=== PATIENT | male | born 1975 | race Caucasian/White ===

== ENCOUNTER 2016-06-09 12:30 | Emergency (ER) | payer OTHER | END 2016-06-09 14:49 | disposition home or self-care (01) | DX: S92.355A Nondisplaced fracture of fifth metatarsal bone, left foot, initial encounter for closed fracture (principal); X50.1XXA Overexertion from prolonged static or awkward postures, initial encounter; Y92.009 Unspecified place in unspecified non-institutional (private) residence as the place of occurrence of the external cause ==

== ENCOUNTER 2016-06-23 10:31 | Outpatient (CLI) | payer OTHER ==
--- NOTE | 2016-06-23 14:30 | XRAY Report ---
THREE VIEW LEFT FOOT: 06/23/2016 CLINICAL INDICATION: Fracture followup. COMPARISON: 06/09/2016. FINDINGS: AP, lateral, and oblique views of the left foot demonstrate minimal increase in displaceme nt of the fracture of the proximal shaft of the 5th metatarsal. No callus formation is seen. No new f racture is appreciated. IMPRESSION: MINIMAL DISPLACEMENT OF THE FRACTURE OF THE PROXIMAL 5TH METATARSAL. NO EVIDENT CALLUS F ORMATION. JOB #: [id number] EXT JOB #:[id number]
== END 2016-06-23 10:32 | disposition home or self-care (01) ==
LOC: DI.S 10:31
PROVIDERS: ATTEND Physician Assistant
DX: S92.352D Displaced fracture of fifth metatarsal bone, left foot, subsequent encounter for fracture with routine healing (principal)

== ENCOUNTER 2017-04-06 11:38 | Outpatient (CLI) | payer OTHER ==
--- NOTE | 2017-04-06 15:58 | XRAY Report ---
THREE VIEW LEFT FOOT: 04/06/2017 CLINICAL INDICATION: Pain, history of fracture. FINDINGS: AP, lateral, and oblique views of the left foot are compared to previous films of 06/23/19 17. The previously seen fracture at the base of the 5th metatarsal has healed. No new fracture is appreci ated. 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 Small plantar a nd posterior calcaneal spurs are present. IMPRESSION: INTERVAL HEALING OF THE FRACTURE AT THE BASE OF THE 5TH METATARSAL. NO EVIDENCE OF ACUTE FRACTURE. JOB #: [id number] EXT JOB #:[id number]
== END 2017-04-06 11:39 | disposition home or self-care (01) ==
LOC: DI.S 11:38
PROVIDERS: ATTEND Physician Assistant
DX: M79.672 Pain in left foot (principal)